=== PATIENT | male | born 1955 | race Caucasian/White ===

== ENCOUNTER 2016-07-08 18:08 | Emergency (ER) | payer OTHER ==
[~2016-07-08] VITALS: Ht 190.5 cm; Wt 117.9 kg
[~2016-07-08 18:08] MED LIST: ATOR40TA59 PO; HYDR-2678 PO; LISI1TAB7 PO; METO25TA4 PO; ONDA8TAB9 PO; POTA10TA5 PO
[2016-07-08] MEDS ORDERED: IV NORMAL SALINE 1000ML BAG 1,000 ML IV SCH (19:45)
[2016-07-08 19:51] LABS: BASO % 0 % (0-3); EOS % 2 % (0-3); HEMATOCRIT 44.1 % (39.0-53.0); HEMOGLOBIN 15.3 g/dL (13.0-17.5); LYMPH # 0.9 x10^3/uL (1.0-4.8); LYMPH % 10 % (24-48); MEAN CORPUSCULAR HEMOGLOBIN 30 pg (25-35); MEAN CORPUSCULAR HGB CONC 35 g/dL (31-37); MEAN CORPUSCULAR VOLUME 86 fL (79-100); MONO % 11 % (0-9); NEUT % 77 % (31-73); PLATELET COUNT 105 x10^3/uL (140-400); RED BLOOD COUNT 5.14 x10^6/uL (4.30-5.70); RED CELL DISTRIBUTION WIDTH 15.2 % (11.5-14.5); WHITE BLOOD COUNT 9.3 x10^3/uL (4.0-11.0)
[2016-07-08 20:01] LABS: CALCIUM 9.1 mg/dL (8.5-10.1); GFR 75.7; POTASSIUM 3.6 mmol/L (3.5-5.1)
[2016-07-08 20:07] LABS: ALBUMIN/GLOBULIN RATIO 1.3 (1.0-1.7); TOTAL PROTEIN 7.2 g/dL (6.4-8.2)
[2016-07-08] MEDS ORDERED: CONTRAST GIVEN MC PRN (20:30)
[2016-07-08] MEDS ORDERED: IOHEXOL 300 MG/ML 75 ML VIAL IV ONE (20:30)
[2016-07-08 20:51] LABS: BILIRUBIN,URINE NEGATIVE (NEG); GLUCOSE,URINE NEGATIVE (NEG); NITRITE,URINE NEGATIVE (NEG); PROTEIN,URINE NEGATIVE (NEG-TRACE); UROBILINOGEN,URINE 0.2 mg/dL (0.2 mg/dL)
[2016-07-08 20:58] LABS: BACTERIA,URINE 0 /HPF (0-FEW); RBC,URINE 0 /HPF (0-2); SQUAMOUS EPITHELIAL CELL,UR OCC /LPF; WBC,URINE 0 /HPF (0-4)
--- NOTE | 2016-07-08 21:06 | RAD ---
PROCEDURE CT abdomen pelvis with intravenous contrast only HISTORY Abdominal pain, umbilical hernia TECHNIQUE After administration of intravenous contrast, CT imaging was performed of the abdomen pelvis, multiplanar reconstruction images submitted. No oral contrast was given as per request. Exposure: One or more of the following individualized dose reduction techniques were utilized for this exam: 1. Automated exposure control. 2. Adjustment of the mA and/or kV according to patient size. 3. Use of iterative reconstruction technique. Contrast: 75 cc Omnipaque 300 COMPARISON February 13, 2016 FINDINGS There is no significant abnormality of the limited visualized lung bases. No new focal abnormality is identified of the liver, spleen, pancreas. There is again 1.8 centimeter gallstone. Gallbladder is otherwise contracted. There is no adrenal nodularity. Both kidneys enhance, no hydronephrosis. There is again a shallow fat containing ventral hernia to the left of midline up to 2.8 centimeters transverse, no internal bowel. Accurate evaluation of bowel is limited without oral contrast. Bowel is not considered significantly dilated. There is some fluid within segments of the small bowel, some questionable mild wall thickening more distally. There are some air-fluid levels in the colon which is not dilated. Appendix is not clearly identified if still present. No free air or free fluid is identified. There are some scattered colonic diverticula without obvious evidence of diverticulitis. IMPRESSION 1. There is again gallstone. 2. There are some air-fluid levels in the colon which could be seen with diarrheal [place], some questionable enhancement of the more distal small bowel salazar which could be associated with enteritis. There is colonic diverticulosis without convincing evidence of diverticulitis. Electronically signed by: Kervin Nieves MD (July 08, 2016 21:04:47)
--- NOTE | 2016-07-08 21:16 | PHYS DOC ---
Past Medical History Past Medical History: Cancer, High Cholesterol, Hypertension, Other Additional Past Medical Histor: COLON CA Past Surgical History: Tonsillectomy, Other Additional Past Surgical Histo: COLON SX, HERNIA SX Alcohol Use: Rarely Drug Use: None Adult General Chief Complaint Chief Complaint: ABDOMINAL PAIN HPI HPI Patient is a 60 year old MALE who presents with ABDOMINAL PAIN Pt states has had abdominal pain all day today. "I have pain over my hernia area" Nausea all day and 2 episodes of diarrhea today. No melena , no hematochezia Pt states pain in "known"hernia area worse with sitting and upright and better when lying down. No F/C Pt states "known" ventral hernia at superior portion of abdominal incision from previous colon Cancer surgery, around belly button area. "My PCP told me large hernia" "I was supposed to make an appointment with Dr. Stark the surgeon for hernia eval but haven't made appointment yet" "My PCP gave me instructions on which symptoms to go to ER for if problems with Hernia. I feel worse today so came to ER Pain earlier started at 430pm 5/10 now better lying supine and is 1/10. Dull ache. Review of Systems Review of Systems Constitutional: Denies fever or chills [] Eyes: Denies change in visual acuity, redness, or eye pain [] HENT: Denies nasal congestion or sore throat [] Respiratory: Denies cough or shortness of breath [] Cardiovascular: No additional information not addressed in HPI [] GI: Abdominal pain, nausea, no vomiting, but some diarrhea, no melena, no hematochezia : Denies dysuria or hematuria [] Musculoskeletal: Denies back pain or joint pain [] Integument: Denies rash or skin lesions [] Neurologic: Denies headache, focal weakness or sensory changes [] Current Medications Current Medications Current Medications Medications (Trade) Dose Ordered Sig/Duke Start Time Stop Time Status Last Admin Dose Admin Info (Do NOT chart on this entry -- for MONITORING) 1 each PRN DAILY PRN 07/08/16 20:30 07/08/16 21:48 DC Iohexol (Omnipaque 300 Mg/ml) 75 ml 1X ONCE 07/08/16 20:30 07/08/16 20:31 DC 07/08/16 20:28 75 ML Sodium Chloride 1,000 ml @ 1,000 mls/hr Q1H 5/22/17 19:45 07/08/16 20:44 DC 07/08/16 19:48 1,000 MLS/HR Allergies Allergies Allergies Coded Allergies Type Severity Reaction Last Updated Verified No Known Drug Allergies 06/19/15 No Physical Exam Physical Exam Constitutional: Well developed, well nourished, no acute distress, non-toxic appearance. [] HENT: Normocephalic, atraumatic, bilateral external ears normal, oropharynx moist, no oral exudates, nose normal. [] Eyes: PERRLA, EOMI, conjunctiva normal, no discharge. [] Neck: Normal range of motion, no tenderness, supple, no stridor. [] Cardiovascular:Heart rate regular rhythm, no murmur [] Lungs & Thorax: Bilateral breath sounds clear to auscultation [] Abdomen: Bowel sounds normal, soft, no tenderness, no masses, no pulsatile masses. [] Skin: Warm, dry, no erythema, no rash. [] Back: No tenderness, no CVA tenderness. [] Extremities: No tenderness, no cyanosis, no clubbing, ROM intact, no edema. [] Neurologic: Alert and oriented X 3, normal motor function, normal sensory function, no focal deficits noted. [] Psychologic: Affect normal, judgement normal, mood normal. [] Current Patient Data Vital Signs Vital Signs Date Time Temp Pulse Resp B/P (MAP) Pulse Ox O2 Delivery O2 Flow Rate FiO2 07/08/16 21:42 60 20 129/69 (89) 97 Room Air 07/08/16 19:00 97.8 97.8 Lab Values Laboratory Tests Test 07/08/16 19:40 07/08/16 20:40 White Blood Count 9.3 x10^3/uL (4.0-11.0) Red Blood Count 5.14 x10^6/uL (4.30-5.70) Hemoglobin 15.3 g/dL (13.0-17.5) Hematocrit 44.1 % (39.0-53.0) Mean Corpuscular Volume 86 fL (79-100) Mean Corpuscular Hemoglobin 30 pg (25-35) Mean Corpuscular Hemoglobin Concent 35 g/dL (31-37) Red Cell Distribution Width 15.2 % (11.5-14.5) H Platelet Count 105 x10^3/uL (140-400) L Neutrophils (%) (Auto) 77 % (31-73) H Lymphocytes (%) (Auto) 10 % (24-48) L Monocytes (%) (Auto) 11 % (0-9) H Eosinophils (%) (Auto) 2 % (0-3) Basophils (%) (Auto) 0 % (0-3) Neutrophils # (Auto) 7.1 x10^3uL (1.8-7.7) Lymphocytes # (Auto) 0.9 x10^3/uL (1.0-4.8) L Monocytes # (Auto) 1.0 x10^3/uL (0.0-1.1) Eosinophils # (Auto) 0.2 x10^3/uL (0.0-0.7) Basophils # (Auto) 0.0 x10^3/uL (0.0-0.2) Sodium Level 139 mmol/L (136-145) Potassium Level 3.6 mmol/L (3.5-5.1) Chloride Level 100 mmol/L (98-107) Carbon Dioxide Level 30 mmol/L (21-32) Anion Gap 9 (6-14) Blood Urea Nitrogen 15 mg/dL (8-26) Creatinine 1.0 mg/dL (0.7-1.3) Estimated GFR (Cockcroft-Gault) 75.7 BUN/Creatinine Ratio 15 (6-20) Glucose Level 116 mg/dL (70-99) H Calcium Level 9.1 mg/dL (8.5-10.1) Total Bilirubin 2.0 mg/dL (0.2-1.0) H Aspartate Amino Transferase (AST) 14 U/L (15-37) L Alanine Aminotransferase (ALT) 38 U/L (16-63) Alkaline Phosphatase 119 U/L (46-116) H Total Protein 7.2 g/dL (6.4-8.2) Albumin 4.0 g/dL (3.4-5.0) Albumin/Globulin Ratio 1.3 (1.0-1.7) Urine Color Yellow Urine Clarity Clear Urine pH 6.0 Urine Specific [place] 1.010 Urine Protein Negative mg/dL (NEG-TRACE) Urine Glucose (UA) Negative mg/dL (NEG) Urine Ketones (Stick) Negative mg/dL (NEG) Urine Blood Negative (NEG) Urine Nitrite Negative (NEG) Urine Bilirubin Negative (NEG) Urine Urobilinogen Dipstick 0.2 mg/dL (0.2 mg/dL) Urine Leukocyte Esterase Negative (NEG) Urine RBC 0 /HPF (0-2) Urine WBC 0 /HPF (0-4) Urine Squamous Epithelial Cells Occ /LPF Urine Bacteria 0 /HPF (0-FEW) Laboratory Tests 07/08/16 19:40 Laboratory Tests 07/08/16 19:40 EKG EKG [] Radiology/Procedures Radiology/Procedures [] PATIENT: DIEGO FERNANDEZ ACCOUNT: [id number] : 1955 LOCATION: ER AGE: 60 SEX: M EXAM STATUS: REG ER ORD. PHYSICIAN: ELIZABETH MACARIO MD REASON: ABDOMINAL PAIN, HX HERNIA PROCEDURE: CT ABD PELV W/ IV CONTRST ONLY PROCEDURE CT abdomen pelvis with intravenous contrast only HISTORY Abdominal pain, umbilical hernia TECHNIQUE After administration of intravenous contrast, CT imaging was performed of the abdomen pelvis, multiplanar reconstruction images submitted. No oral contrast was given as per request. Exposure: One or more of the following individualized dose reduction techniques were utilized for this exam: 1. Automated exposure control. 2. Adjustment of the mA and/or kV according to patient size. 3. Use of iterative reconstruction technique. Contrast: 75 cc Omnipaque 300 COMPARISON February 13, 2016 FINDINGS There is no significant abnormality of the limited visualized lung bases. No new focal abnormality is identified of the liver, spleen, pancreas. There is again 1.8 centimeter gallstone. Gallbladder is otherwise contracted. There is no adrenal nodularity. Both kidneys enhance, no hydronephrosis. There is again a shallow fat containing ventral hernia to the left of midline up to 2.8 centimeters transverse, no internal bowel. Accurate evaluation of bowel is limited without oral contrast. Bowel is not considered significantly dilated. There is some fluid within segments of the small bowel, some questionable mild wall thickening more distally. There are some air-fluid levels in the colon which is not dilated. Appendix is not clearly identified if still present. No free air or free fluid is identified. There are some scattered colonic diverticula without obvious evidence of diverticulitis. IMPRESSION 1. There is again gallstone. 2. There are some air-fluid levels in the colon which could be seen with diarrheal [place], some questionable enhancement of the more distal small bowel [place] which could be associated with enteritis. There is colonic diverticulosis without convincing evidence of diverticulitis. Electronically signed by: Kervin Ling MD (July 08, 2016 21:04:47) DICTATED and SIGNED BY: PAIGE LING MD DATE: 07/08/162103 CC: ELIZABETH MACARIO MD; ROCÍO EGAN MD ~ Impressions: 1. Abdominal pain 2. Ventral hernia with fat containing area, no obstruction 3. Diarrhea 4. Incidental finding of gallstone Course & Med Decision Making Course & Med Decision Making Pertinent Labs and Imaging studies reviewed. (See chart for details) Called Dr. Stark and discussed pt exam and CT /lab findings. Pt is comfortable lying reclined no pain Discussed with pt that Dr. Stark wants pt to call office and get follow up tomorrow for recheck no work for pt for 2 days pt declined pain meds and will follow up [] Dragon Disclaimer Dragon Disclaimer This electronic medical record was generated, in whole or in part, using a voice recognition dictation system. Departure Departure Impression: Primary Impression: Ventral hernia without obstruction or gangrene Additional Impressions: Abdominal pain Diarrhea Disposition: 01 HOME, SELF-CARE Condition: IMPROVED Referrals: ROCÍO EGAN MD (PCP) ZAKI STARK MD Patient Instructions: Diarrhea, Hernia, [id number] Additional Instructions: ENCOURAGE LIQUIDS WHILE DIARRHEA IS CONTINUING TO AVOID DEHYDRATION CALL DR. PRATER OFFICE IN AM AND FOLLOW UP WITH HIM TOMORROW FOR RECHECK RETURN IF WORSE OR CHANGE IN SYMPTOMS Problem Qualifiers ELIZABETH MACARIO MD July 08, 2016 21:16
[2016-07-08 21:42] VITALS: BP 129/69
== END 2016-07-08 21:48 | disposition home or self-care (01) ==
LOC: ER 18:08
DX: K43.9 Ventral hernia without obstruction or gangrene (principal); R19.7 Diarrhea, unspecified; E78.00 Pure hypercholesterolemia, unspecified; I10 Essential (primary) hypertension; Z98.890 Other specified postprocedural states
CPT/HCPCS: 36415; 74177; 80053; 81001; 85027; 96360; 99285; J7030; Q9967

== ENCOUNTER 2016-08-05 06:07 | Observation (INO) | payer OTHER ==
[2016-08-05] VITALS (10 sets, daily range): BP systolic 93–128; BP diastolic 61–77
[~2016-08-05] VITALS: Ht 190.5 cm; Wt 115.7 kg
[~2016-08-05 06:07] MED LIST changes: +IV RINGERS,LACTATED 1000ML 1,000 ML IV SCH; +LIDOCAINE 1% 1 ML SYRINGE. ID PRN
[2016-08-05] MEDS ORDERED: PROPOFOL 20 ML IV ONE (07:05)
[2016-08-05] MEDS ORDERED: ePHEDrine PF IN SALINE 50 MG/5 ML DISP.SYRIN IV ONE (07:05)
[2016-08-05] MEDS ORDERED: LIDOCAINE 2% PF Vial for OR 5 ML VIAL. ONE (07:05)
[2016-08-05] MEDS ORDERED: ONDANSETRON PF 4 MG/2 ML VIAL. ONE (07:05)
[2016-08-05] MEDS ORDERED: DEXAMETHASONE SOD PHOS 20 MG/5 ML VIAL. ONE (07:05)
[2016-08-05] MEDS ORDERED: fentaNYL PF VIAL 250 MCG/5 ML VIAL ONE (07:07)
[2016-08-05] MEDS ORDERED: ROCURONIUM 50 MG/5 ML VIAL. ONE (07:07)
[2016-08-05] MEDS ORDERED: NEOSTIGMINE 10 MG/10 ML VIAL. ONE (07:47)
[2016-08-05] MEDS ORDERED: GLYCOPYRROLATE 1 MG/5 ML VIAL. ONE (07:48)
[2016-08-05] MEDS ORDERED: NEOSTIGMINE METHYLSULFATE 5 MG/5 ML SYRINGE. ONE (07:50)
[2016-08-05] MEDS ORDERED: SEVOFLURANE 61 TO 120 MINUTES. IH ONE (08:56)
[2016-08-05] MEDS ORDERED: IV RINGERS,LACTATED 1000ML 1,000 ML IV SCH ×2 (09:39→09:45)
--- NOTE | 2016-08-05 09:42 | PDOC4 ---
Operative Note Operative Note Operative Note: Preoperative Diagnosis: Ventral hernia Postoperative Diagnosis: Same Procedure: Ventral hernia repair with mesh Surgeon: Daniel Estrada.: Arnie AJ Anesthesia: Gen. EBL: 10 mL Specimen: None Drains: None Complications: None Indication: The patient is a 60-year-old male who had prior colon surgery. He has developed a focal ventral hernia near the upper part of his incision. He is interested in surgical repair of the hernia. I discussed with him details of surgery including the use of mesh. The risks of surgery were also noted which include bleeding, infection, recurrence, pain, potential need for additional surgery or procedure. He understands and would like to proceed. Description: The patient was taken to the operating room and placed supine on the operating table. Gen. anesthesia was performed. The abdomen was prepped with ChloraPrep and draped with sterile towels, sheets, and an Ioban. An incision was made at the site of the prior scar in the upper part of his previous lower vertical midline incision. Cautery dissection was carried down through the subcutaneous tissues. There was some scar tissue present. We were able to clearly identify the hernia sac. The fascial edges were delineated. Inspection of the surrounding fascia showed no other evidence of weakness or hernia defects. The hernia sac was opened and there was no visceral adherence to the sac. With a finger I was able to palpate good clearance circumferentially around the intraperitoneal portion of the abdominal wall. The hernia sac was then closed with 2-0 Vicryl. A preperitoneal plane was then developed circumferentially around the hernia defect. I was able to obtain several centimeters of length in all directions around the hernia defect. The hernia defect measured approximately 3 x 4 cm in size. A large Ventralex ST mesh was then placed in the newly formed preperitoneal space. The mesh rested well and provided several centimeters of overlap in all directions. The mesh was sutured into position at the 12, 3, 6, 9:00 positions using 0 Prolene placed in a horizontal mattress fashion. The attenuated fascial edges were closed over the mesh with interrupted 0 Prolene. The subcutaneous tissue was approximated with 3-0 Vicryl. The skin was then closed with a 4-0 Monocryl suture. Steri-Strips and a sterile dressing were then applied. The patient tolerated the procedure well and was sent to the recovery room in stable condition. At the end of the case all counts were correct. CHIRAG SEBASTIAN MD Aug 05, 2016 09:42
[2016-08-05] MEDS ORDERED: oxyCODONE/APAP 5/325 1 TAB TABLET PO PRN ×2 (09:45)
[2016-08-05] MEDS ORDERED: HYDROmorphone 2 MG/ML VIAL IV PRN ×3 (09:45)
[2016-08-05] MEDS ORDERED: LIDOCAINE 1% 1 ML SYRINGE. ID PRN ×2 (09:45)
[2016-08-05] MEDS ORDERED: MORPHINE SULFATE 4 MG/ML DISP.SYRIN. IV PRN (09:45)
[2016-08-05] MEDS ORDERED: MORPHINE SULFATE 2 MG/ML DISP.SYRIN. IV PRN (09:45)
[2016-08-05] MEDS ORDERED: fentaNYL PF VIAL 100 MCG/2 ML VIAL IV PRN ×5 (09:45)
[2016-08-05] MEDS ORDERED: diphenhydrAMINE 50 MG/ML VIAL IV PRN (09:45)
[2016-08-05] MEDS ORDERED: MIDAZOLAM HCL/PF 2 MG/2 ML VIAL. IV PRN ×2 (09:45)
[2016-08-05] MEDS ORDERED: PROCHLORPERAZINE 10 MG/2 ML VIAL. IV PRN ×2 (09:45)
[2016-08-05] MEDS ORDERED: KETOROLAC 15 MG/ML VIAL. IV PRN (09:45)
[2016-08-05] MEDS ORDERED: ONDANSETRON PF 4 MG/2 ML VIAL. IV PRN ×2 (09:45)
[2016-08-05] MEDS ORDERED: 0.9 % SODIUM CHLORIDE 10 ML DISP.SYRIN. IV PRN (09:45)
[2016-08-05] MEDS ORDERED: MEPERIDINE PF 25 MG/ML VIAL. IV PRN (09:45)
[2016-08-05] MEDS ORDERED: IV 1/2 NORMAL SALINE 1,000 ML IV SCH (12:00)
--- NOTE | 2016-08-05 15:02 | DISCH ---
DISCHARGE INSTRUCTIONS Condition on Discharge Condition on Discharge: Stable Activity After Discharge Activity Instructions for Disc: Other, see below (no lifting over 20 lbs) Diet after Discharge Diet after Discharge: Regular Wound Incision Care Wound/Incision Care: Other, see below (keep dressing on 72 hours, may then remove and shower) Follow-Up Follow up with: Dr Sebastian in 2 weeks, call for appt [phone] CHIRAG SEBASTIAN MD Aug 05, 2016 15:02
[2016-08-05] MEDS ORDERED: ATORVASTATIN CALCIUM 40 MG TABLET. PO SCH (21:00)
[2016-08-06] MEDS ORDERED: POTASSIUM CHLORIDE 20 MEQ TABLET.ER. PO SCH (08:00)
[2016-08-06] MEDS ORDERED: METOPROLOL TART IMMED RELEASE 25 MG TABLET. PO SCH (09:00)
[2016-08-06] MEDS ORDERED: NON FORMULARY ITEM (Lisinopril/Hydrochlorothiazide (Lisinopril-Hctz 20-25 Mg Tab) 1 TAB) PO SCH (09:00)
[2016-08-06] MEDS ORDERED: hydroCHLOROthiazide 25 MG TABLET PO SCH (09:00)
[2016-08-06] MEDS ORDERED: LISINOPRIL 20 MG TABLET PO SCH (09:00)
== END 2016-08-05 18:51 | disposition home or self-care (01) ==
LOC: SURG 06:07 → 4 SOUTHEST 09:42
PROVIDERS: ADMIT Surgery; ATTEND Surgery
DX: K43.9 Ventral hernia without obstruction or gangrene (principal)
CPT/HCPCS: 49560; 49568; G0378; G0379; J0690; J1100; J2405; J2704; J2710; J3010; J3490; J7120

== ENCOUNTER → 2017-02-12 | Outpatient (CLI) | payer OTHER ==
[2016-08-05 18:14] VITALS: BP 125/71
[~2017-02-12] MED LIST changes: +IOHEXOL 240 MG/ML 50ML VIAL. PO ONE; +IOHEXOL 300 MG/ML 100ML VIAL. IV ONE; -IV RINGERS,LACTATED 1000ML 1,000 ML IV SCH; -LIDOCAINE 1% 1 ML SYRINGE. ID PRN
--- NOTE | 2017-02-12 15:28 | RAD ---
CT of the chest, abdomen and pelvis with contrast, 02/12/2017: History: Colon cancer Multidetector CT imaging was performed following oral and IV administration of contrast. Comparison is made to studies from 02/13/2016 and 07/08/2016. No mediastinal or hilar adenopathy is seen. There are mild scattered coronary artery calcifications. There appears to be minimal streaky scarring or atelectasis in the inferomedial aspect of the right middle lobe. No pulmonary mass or significant consolidation is seen. There is no evidence of pleural fluid. No hepatic abnormality is detected. A moderate size gallstone is present in the gallbladder. No pericholecystic edema is evident. The pancreas is unremarkable. The spleen is of normal size. Contour irregularities suggest prior splenic trauma. No renal or adrenal abnormality is detected. The abdominal aorta is unremarkable. No abdominal or pelvic adenopathy is seen. A few colonic diverticula are noted, particularly in the descending and sigmoid colon. No paracolonic inflammatory process is seen. The bowel loops are not dilated. No free fluid is evident in the abdomen or pelvis. IMPRESSION: 1. No CT evidence of metastatic disease in the chest, abdomen or pelvis. 2. Cholelithiasis. 3. Colonic diverticulosis. PQRS Compliance Statement: One or more of the following individualized dose reduction techniques were utilized for this examination: 1. Automated exposure control 2. Adjustment of the mA and/or kV according to patient size 3. Use of iterative reconstruction technique
== END | disposition home or self-care (01) ==
LOC: CT 10:53
PROVIDERS: ATTEND Internal Medicine Hematology & Oncology
DX: C18.7 Malignant neoplasm of sigmoid colon (principal); K80.20 Calculus of gallbladder without cholecystitis without obstruction; K57.30 Diverticulosis of large intestine without perforation or abscess without bleeding
CPT/HCPCS: 71260; 74177; Q9966; Q9967

== ENCOUNTER → 2018-02-25 | Outpatient (CLI) | payer OTHER ==
[2016-08-05 18:14] VITALS: BP 125/71
[~2018-02-25] MED LIST changes: +POTA10TA12 PO; -POTA10TA5 PO
--- NOTE | 2018-02-25 10:28 | RAD ---
CT CHEST ABD PELVIS W/CONTRAST Indication: Malignant neoplasm sigmoid colon Technique: Postcontrast CT imaging was performed of the chest, abdomen, pelvis, multiplanar reconstruction images submitted. Oral contrast was given. One or more of the following individualized dose reduction techniques were utilized for this examination: 1. Automated exposure control 2. Adjustment of the mA and/or kV according to patient size 3. Use of iterative reconstruction technique. Comparison: February 12, 2017; February 13, 2016 Chest: Findings: A 0.4 cm right middle lobe nodule axial image 38 is stable. Mild likely fibrotic change of the left upper lobe is similar, more linear appearance on coronal images. Small 0.5 cm focus of nodularity along the left major fissure axial image 42 is stable. Major airways are patent. No new significant lymphadenopathy is identified of the chest. There is again air-fluid level in the slightly dilated esophagus, possible mild esophageal wall thickening unchanged. There is no pleural or pericardial effusion, pneumothorax, infiltrate. There is mild coronary calcification. There is multilevel thoracic spondylosis. IMPRESSION: 1. There is no new abnormality of the chest including new pulmonary nodularity or lymphadenopathy, a couple of small pulmonary nodules stable dating back to 2016 exam. 2. There is mild coronary calcification. 3. There is again air-fluid level in slightly dilated esophagus with possible mild esophageal wall thickening which can be associated with esophagitis although nonspecific. Abdomen pelvis: Findings: There is again 2 cm gallstone. No new focal abnormality is identified liver, pancreas, spleen. There is no adrenal nodularity. Both kidneys enhance, no hydronephrosis. Bowel is not considered significantly dilated. Mild amorphous density of the mesenteric and omental fat greatest centrally and on the left is similar. There is no free air, free fluid, or bowel dilatation. There is diverticulosis greatest of the descending and sigmoid colon without new adjacent inflammatory-type change. There is mild distention of the urinary bladder. New significant lymphadenopathy is identified of the abdomen or pelvis. There is facet degenerative change greater inferiorly of the lumbar spine. There is again partial fusion of the left sacroiliac joint, also some fused osteophytes on the right. IMPRESSION: 1. Findings are unchanged comparing with the previous exam, no new evidence of metastatic disease to the abdomen or pelvis. 2. There is again diverticulosis of the descending and sigmoid colon. 3. There is again cholelithiasis. Electronically signed by: Jarrett Nieves MD (02/25/2018 10:24 AM) [id number]
== END | disposition home or self-care (01) ==
LOC: CT 08:12
PROVIDERS: ATTEND Internal Medicine Hematology & Oncology
DX: C18.7 Malignant neoplasm of sigmoid colon (principal); K57.30 Diverticulosis of large intestine without perforation or abscess without bleeding; K80.20 Calculus of gallbladder without cholecystitis without obstruction; K22.8 Other specified diseases of esophagus; M47.894 Other spondylosis, thoracic region; I25.10 Atherosclerotic heart disease of native coronary artery without angina pectoris; R91.1 Solitary pulmonary nodule
CPT/HCPCS: 71260; 74177; Q9966; Q9967

== ENCOUNTER → 2019-03-11 | Outpatient (CLI) | payer OTHER ==
[2016-08-05 18:14] VITALS: BP 125/71
[~2019-03-11] MED LIST changes: +LISI1TAB20 PO; -LISI1TAB7 PO
--- NOTE | 2019-03-11 10:36 | RAD ---
Examination: CT CHEST ABD PELVIS W/CONTRAST History: Colon cancer Comparison/Correlation: 03/07/2018 CT chest abdomen and pelvis with contrast Findings: Axial images of the chest, abdomen, pelvis were obtained following IV contrast. Sagittal and coronal reformatted images were provided. Saber-sheath trachea is present. Tracheal bronchial tree dilatation noted. Left anterior descending coronary vessel calcification is present. No enlarged thoracic lymph nodes. Thoracic aorta is unremarkable. No pulmonary nodule or suspicious infiltrate. Small nodule involving the right middle lobe which appears to represent a calcified granuloma is stable. There is a 2.1 cm diameter calculus within the gallbladder. Liver, spleen, pancreas, adrenal glands, and kidneys are unremarkable. Diverticulosis is present involving the colon. No extraluminal gas or obstruction. No inflammatory change about the cecum. Moderate quantity of stool in the distal rectum noted. Urinary bladder is unremarkable. Subtle high density of mesenteric fat is present at the left upper quadrant and lower abdomen and is similar to prior exam. Bony structures are unremarkable. Impression: No mass lesions, enlarged lymph nodes, or other suspicious findings in the interval.. No infiltrate. Cholelithiasis. PQRS Compliance Statement: One or more of the following individualized dose reduction techniques were utilized for this examination: 1. Automated exposure control 2. Adjustment of the mA and/or kV according to patient size 3. Use of iterative reconstruction technique Electronically signed by: Nasim Awad MD (03/11/2019 10:33 AM) [facility]
== END | disposition home or self-care (01) ==
LOC: CT 07:59
PROVIDERS: ATTEND Internal Medicine Hematology & Oncology
DX: C18.7 Malignant neoplasm of sigmoid colon (principal); K57.30 Diverticulosis of large intestine without perforation or abscess without bleeding; K80.20 Calculus of gallbladder without cholecystitis without obstruction; I25.10 Atherosclerotic heart disease of native coronary artery without angina pectoris
CPT/HCPCS: 71260; 74177; Q9966; Q9967

== ENCOUNTER → 2020-02-16 | Outpatient (CLI) | payer OTHER ==
[2016-08-05 18:14] VITALS: BP 125/71
[~2020-02-16] MED LIST changes: -IOHEXOL 240 MG/ML 50ML VIAL. PO ONE; -IOHEXOL 300 MG/ML 100ML VIAL. IV ONE
[2020-02-16 08:56] LABS: ALBUMIN 3.9 g/dL (3.4-5.0); ALBUMIN/GLOBULIN RATIO 1.2 (1.0-1.7); GFR 74.8; POTASSIUM 3.6 mmol/L (3.5-5.1); TOTAL BILIRUBIN 1.1 mg/dL (0.2-1.0); TOTAL PROTEIN 7.1 g/dL (6.4-8.2)
[2020-02-16 08:57] LABS: CHOLESTEROL/HDL RATIO 2.5
== END ==
LOC: LAB 07:54
PROVIDERS: ATTEND Nurse Practitioner
DX: E78.5 Hyperlipidemia, unspecified (principal)
CPT/HCPCS: 36415; 80053; 80061; 83721

== ENCOUNTER → 2020-02-16 | Outpatient (CLI) | payer OTHER ==
[2016-08-05 18:14] VITALS: BP 125/71
[~2020-02-16] MED LIST changes: +CONTRAST GIVEN. MC PRN; +IOHEXOL 240 MG/ML 50ML VIAL. PO ONE; +IOHEXOL 300 MG/ML 100ML VIAL. IV ONE
[2020-02-16 08:44] LABS: CREATININE 0.8 mg/dL (0.7-1.3); GFR 96.7
--- NOTE | 2020-02-16 10:05 | RAD ---
CT of the chest, abdomen, and pelvis with contrast 02/16/2020 INDICATION: History of colorectal carcinoma COMPARISON STUDY: CT of the chest abdomen and pelvis March 11, 2019. CT of the chest May 12, 2015 . TECHNIQUE: Multidetector CT imaging of the chest, abdomen, and pelvis performed on the administration of contrast. FINDINGS: Heart size remains normal. No pericardial effusion is identified. No pathologically enlarge d mediastinal adenopathy is identified. There is no pneumothorax, pleural effusion, or focal infiltra te. No pulmonary nodules or masses of concern are identified. 4 to 5 mm nodule in the right middle lo be is unchanged since April 2015. No other significant pulmonary nodules are identified. The adrenal glands, spleen, kidneys and pancreas are unremarkable. Cholelithiasis again noted. The li rd is unremarkable in appearance. There is no evidence of bowel obstruction. Distal colonic divertic ulosis is similar. Mesenteric fat stranding is noted, similar to comparison studies, nonspecific. No acute osseous changes are identified. IMPRESSION: 1. No evidence of acute cardiopulmonary or intra-abdominal abnormality 2. No CT evidence of malignancy is identified CT DOSING PQRS STATEMENT: One or more of the following individualized dose reduction techniques were utilized for this examinat ion: 1. Automated exposure control 2. Adjustment of the mA and/or kV according to patient size 3. Use of iterative reconstruction technique Electronically signed by: Chema Ferguson MD (02/16/2020 10:03 AM) [id number]
== END ==
LOC: CT 07:50
PROVIDERS: ATTEND Internal Medicine Hematology & Oncology
DX: C18.7 Malignant neoplasm of sigmoid colon (principal); R91.1 Solitary pulmonary nodule; K80.20 Calculus of gallbladder without cholecystitis without obstruction; K57.30 Diverticulosis of large intestine without perforation or abscess without bleeding; E78.5 Hyperlipidemia, unspecified
CPT/HCPCS: 36415; 71260; 74177; 82565; 84520; Q9966; Q9967

== ENCOUNTER 2021-01-17 07:02 | Inpatient (IN) | payer OTHER, MEDICARE ==
[~2021-01-17] VITALS: Ht 190.5 cm; Wt 113.4 kg
[~2021-01-17 07:02] MED LIST changes: -CONTRAST GIVEN. MC PRN; -IOHEXOL 240 MG/ML 50ML VIAL. PO ONE; -IOHEXOL 300 MG/ML 100ML VIAL. IV ONE; -LISI1TAB20 PO; +LISI1TAB39 PO
[2021-01-17] MEDS ORDERED: IV NORMAL SALINE 1000ML BAG 1,000 ML IV ONE (08:00)
[2021-01-17 08:27] LABS: BASO % 0 % (0-3); EOS # 0.1 x10^3/uL (0.0-0.7); EOS % 1 % (0-3); HEMOGLOBIN 15.4 g/dL (13.0-17.5); LYMPH # 0.8 x10^3/uL (1.0-4.8); LYMPH % 7 % (24-48); MEAN CORPUSCULAR HEMOGLOBIN 29 pg (25-35); MEAN CORPUSCULAR HGB CONC 36 g/dL (31-37); MEAN CORPUSCULAR VOLUME 82 fL (79-100); MONO # 1.9 x10^3/uL (0.0-1.1); MONO % 19 % (0-9); NEUT # 7.3 x10^3/uL (1.8-7.7); NEUT % 73 % (31-73); PLATELET COUNT 160 x10^3/uL (140-400); RED BLOOD COUNT 5.26 x10^6/uL (4.30-5.70); RED CELL DISTRIBUTION WIDTH 15.5 % (11.5-14.5); WHITE BLOOD COUNT 10.1 x10^3/uL (4.0-11.0)
[2021-01-17 08:30] LABS: INFLUENZA A PATIENT NEGATIVE (NEGATIVE); INFLUENZA B PATIENT NEGATIVE (NEGATIVE)
[2021-01-17 08:42] LABS: CALCIUM 8.3 mg/dL (8.5-10.1); CREATININE 0.9 mg/dL (0.7-1.3); GFR 84.2; POTASSIUM 3.2 mmol/L (3.5-5.1)
[2021-01-17] MEDS ORDERED: DEXAMETHASONE SOD PHOS 4 MG/ML VIAL IVP ONE (08:45)
--- NOTE | 2021-01-17 08:48 | PHYS DOC ---
Past Medical History Past Medical History: Cancer, High Cholesterol, Hypertension, Other Additional Past Medical Histor: COLON CA Past Surgical History: Tonsillectomy, Other Additional Past Surgical Histo: COLON SX, HERNIA SX Smoking Status: Never Smoker Alcohol Use: None Drug Use: None Social History Narrative: Lives with who currently has similar symptoms General Adult EDM: Chief Complaint: SHORTNESS OF BREATH HPI: HPI: Patient is a 65-year-old male who presents to the emergency department with reported episode of dizziness this morning at 0730 hrs. patient reported that he was walking to his vehicle when he had a sudden onset of "very bad" dizziness that was associated with a feeling of almost passing out. Patient denies actually losing consciousness. Denies head trauma. Endorses a 1 week history of cold symptoms at home including productive cough, nasal discharge, mild malaise. His at home has similar symptoms. He has had 2 doses of the Pfizer vaccine; he reports that his primary care physician advised to not get the third dose booster due to a "significant" reaction he had with the second dose that caused him to be hospitalized briefly. He reports that he has not gotten his flu vaccine this year. He reports mild nausea and diarrhea however denies chest pain, arm pain, jaw pain, shortness of breath, blood in stool. He also reports a recent 2-day history of muffled hearing in the right ear. Review of Systems: Review of Systems: Constitutional: Denies fever; reports "really bad" chills and rigors Eyes: Denies redness or eye pain HENT: Denies sore throat; reports congestion, muffled hearing in the right ear Respiratory: Denies shortness of breath; reports productive cough Cardiovascular: Denies chest pain or palpitations, arm pain, jaw pain; reports dizziness and lightheadedness, GI: Denies abdominal pain, vomiting, blood in stool; reports nausea and diarrhea : Denies dysuria or hematuria Musculoskeletal: Denies back pain or joint pain Integument: Denies rash or skin lesions Neurologic: Denies headache, focal weakness or sensory changes Complete systems were reviewed and found to be within normal limits, except as documented in this note. Heart Score: C/O Chest Pain: N/A Family History: Family History: Unremarkable family history Current Medications: Current Medications Medications (Trade) Dose Ordered Sig/Duke Start Time Stop Time Status Last Admin Dose Admin Sodium Chloride 1,000 ml @ 1,000 mls/hr 1X ONCE 01/17/21 08:00 01/17/21 08:59 01/17/21 08:12 1,000 MLS/HR Allergies: Allergies: Allergies Coded Allergies Type Severity Reaction Last Updated Verified No Known Drug Allergies 08/05/16 No Physical Exam: PE: Constitutional: Well developed, well nourished, mild distress, non-toxic appearance HENT: Normocephalic, atraumatic, right tympanic membrane mildly erythematous/not bulgingear canal appears normal, left tympanic membrane non-erythematous/normal cone of light visualized, attempted Marco maneuver appearing to be negative Eyes: PERRL, conjunctiva normal, no discharge, normal extraocular eye motion, horizontal nystagmus on rightward gaze appreciated during H test Neck: Normal range of motion, no tenderness, supple, no JVD, trachea midline Lungs & Thorax: No respiratory distress, normal chest wall excursion bilaterally, lungs clear to auscultation in all joiner bilaterally Abdomen: Soft, no tenderness Skin: Warm, dry, no erythema, no rash Back: No tenderness, no CVA tenderness Extremities: No tenderness, ROM intact, no edema Neurologic: Alert and oriented X 3, normal motor function, normal sensory function other than reported muffled hearing, no focal deficits noted Psychologic: Affect normal, judgment normal Current Patient Data: Labs: Laboratory Tests Test 01/17/21 07:41 01/17/21 08:05 Influenza Type A Antigen Negative (NEGATIVE) Influenza Type B Antigen Negative (NEGATIVE) SARS-CoV-2 Antigen (Rapid) Negative (NEGATIVE) White Blood Count 10.1 x10^3/uL (4.0-11.0) Red Blood Count 5.26 x10^6/uL (4.30-5.70) Hemoglobin 15.4 g/dL (13.0-17.5) Hematocrit 43.0 % (39.0-53.0) Mean Corpuscular Volume 82 fL (79-100) Mean Corpuscular Hemoglobin 29 pg (25-35) Mean Corpuscular Hemoglobin Concent 36 g/dL (31-37) Red Cell Distribution Width 15.5 % (11.5-14.5) H Platelet Count 160 x10^3/uL (140-400) Neutrophils (%) (Auto) 73 % (31-73) Lymphocytes (%) (Auto) 7 % (24-48) L Monocytes (%) (Auto) 19 % (0-9) H Eosinophils (%) (Auto) 1 % (0-3) Basophils (%) (Auto) 0 % (0-3) Neutrophils # (Auto) 7.3 x10^3/uL (1.8-7.7) Lymphocytes # (Auto) 0.8 x10^3/uL (1.0-4.8) L Monocytes # (Auto) 1.9 x10^3/uL (0.0-1.1) H Eosinophils # (Auto) 0.1 x10^3/uL (0.0-0.7) Basophils # (Auto) 0.0 x10^3/uL (0.0-0.2) Platelet Estimate Pending Laboratory Tests 01/17/21 08:05 Vital Signs: Vital Signs Date Time Temp Pulse Resp B/P (MAP) Pulse Ox O2 Delivery O2 Flow Rate FiO2 01/17/21 07:18 97.9 110 24 101/80 (87) 85 Room Air 97.9 EKG: EKG: EKG taken at 0742 hrs. EKG with significant amount of motion artifact. Normal sinus rhythm rate of 99 bpm. WI interval 78 ms, QRS interval 86 ms, QT/QTc 390 ms / 506 ms. Frequent ectopyPVCs appreciated every fifth beat on this EKG. ST segments appear to be at baseline. T waves appreciated to be normal. No acute ischemic changes appreciated on this EKG. Radiology/Procedures: Radiology/Procedures: PROCEDURE: CHEST AP ONLY XR CHEST 1V History: Reason: cough, SOA, hypoxia/LAB IN ROOM 12:15 / Spl. Instructions: / History: Comparison: None. Findings: Mild ill-defined left basilar opacities. No pleural effusion. No pneumothorax. Unchanged heart size. Impression: 1. Mild left basilar ill-defined opacities, may represent atelectasis. Electronically signed by: Hansel Haddad DO (01/17/2021 1:53 PM) [id number] Course & Med Decision Making: Course & Med Decision Making Pertinent Labs and Imaging studies reviewed. (See chart for details) 65-year-old male presents to the emergency department with a report of few day history of cough, runny nose, congestion. Reports that this morning while walking to his vehicle at 0730 hrs. he became very dizzy, with a feeling of near syncope. He denies LOC/head trauma. Patient reports that his at home has had similar symptoms. He has had 2 doses of the Pfizer vaccineunknown when the last dose was, he has not had a flu vaccine this year. Plan for EKG, IV access, cardiac monitoring, blood work, steroids administered. During patient's course at the emergency department there was a prolonged wait for patient's D-dimer to return. Additionally during his stay his O2 saturation levels begin to fall while on room air he was subsequently placed on supplemental oxygen. Patient will be admitted Patient requiring admission for further evaluation and treatment. Discussed with Dr. Samuel (hospitalist) who is in agreement with admission. Discussed findings and plan with patient, who acknowledges understanding and agreement. COVID-19 CRITERIA: The patient was evaluated during the global COVID-19 pandemic, and that diagnosis was suspected/considered upon their initial presentation. Their evaluation, treatment and testing was consistent with current guidelines for patients who present with complaints or symptoms that may be related to COVID-19. Dragon Disclaimer: Dragon Disclaimer: This electronic medical record was generated, in whole or in part, using a voice recognition dictation system. Departure Departure Impression: Primary Impression: Suspected 2019 novel coronavirus infection Additional Impressions: Respiratory failure Qualified Codes: J96.01 - Acute respiratory failure with hypoxia Lactic acidosis Hypokalemia Disposition: ADMITTED INPATIENT Admitting Physician: GARRY (Jimmie) Condition: GUARDED Referrals: ROCÍO EGAN MD (PCP) COVID-19 Assessment: COVID-19 Patient Risks: Age 65 or older: Yes Sign of co-morbidity: No Exp to person + for COVID: No Exp to PUI: No Travel from affected area: No Lower respiratory symptoms: Yes Fever: Yes Other: Yes PPE Use: Full PPE with N95 mask or PAPR: Yes Critical Care Time Critical care time was 30 minutes which includes time at bedside, spent in discussion of patient's care with specialists and/or family members, with interpretation of laboratory and/or radiological studies and is exclusive of procedures. VARUN GUILLERMO DO Jan 17, 2021 08:48
[2021-01-17 08:49] LABS: ALBUMIN 3.3 g/dL (3.4-5.0); ALBUMIN/GLOBULIN RATIO 0.9 (1.0-1.7); MAGNESIUM 2.1 mg/dL (1.8-2.4); TOTAL BILIRUBIN 1.7 mg/dL (0.2-1.0); TOTAL PROTEIN 6.8 g/dL (6.4-8.2)
[2021-01-17 10:21] LABS: % BANDS 2 % (0-9); % EOS 1 % (0-5); % LYMPHS 10 % (24-48); % MONOS 7 % (0-10); % SEGS 80 % (35-66); PLT ESTIMATE ADEQUATE (ADEQUATE)
[2021-01-17] MEDS ORDERED: POTASSIUM CHLORIDE 20 MEQ TABLET.ER. PO ONE ×2 (10:30→17:30)
[2021-01-17 11:04] LABS: PROTHROMBIN TIME PATIENT 15.1 SEC (11.7-14.0)
--- NOTE | 2021-01-17 11:36 | EKG ---
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
[2021-01-17 11:38] LABS: D-DIMER 0.51 ug/mlFEU (0.00-0.50)
--- NOTE | 2021-01-17 13:56 | RAD ---
XR CHEST 1V History: Reason: cough, SOA, hypoxia/LAB IN ROOM 12:15 / Spl. Instructions: / History: Comparison: None. Findings: Mild ill-defined left basilar opacities. No pleural effusion. No pneumothorax. Unchanged heart size. Impression: 1. Mild left basilar ill-defined opacities, may represent atelectasis. Electronically signed by: Hansel Haddad DO (01/17/2021 1:53 PM) [id number]
[2021-01-17] MEDS ORDERED: cefTRIAXone IV Push 1 GM VIAL. IVP ONE (14:00)
[2021-01-17] MEDS ORDERED: AZITHRMYCN 500MG IVPB FOR OMNI 250 ML IV ONE (14:00)
[2021-01-17] MEDS ORDERED: ONDANSETRON PF 4 MG/2 ML VIAL. IVP PRN (16:15)
[2021-01-17] MEDS ORDERED: ACETAMINOPHEN 325 MG TABLET. PO PRN (16:15)
[2021-01-17] MEDS ORDERED: IV NORMAL SALINE 1000ML BAG 1,000 ML IV SCH (16:15)
[2021-01-17] MEDS ORDERED: guaiFENesin/CODEINE 100mg/10mg 5 ML LIQUID PO PRN (17:45)
--- NOTE | 2021-01-17 18:00 | PDOC1 ---
History and Physical Date of Admission Date of Admission DATE: 01/17/21 TIME: 17:51 Source Source: Chart review, Patient History of Present Illness History of Present Illness Mr. Hargrove, is a 65-year-old male, admitted her 6 years ago for colon cancer and has been doing well since and has been cancer free. Admit from the ER for weakness, cough and dizziness. He reports he almost pass ed out when walking he had new marked dizzyness this morning at 0730 hrs, muffled hearing for 2 days. he has felt mildly ill for almost a week, w. productive cough, nasal discharge, mild malaise. His has similar symptoms. has gotten 2 doses of Pfizer Past Medical History Cardiovascular: HTN, Hyperlipidemia GI: Other Renal/: No pertinent hx Endocrine: No pertinent hx Dermatology: No pertinent hx Past Surgical History Past Surgical History: Tonsillectomy, Other Family History Family History: Cancer, Other Social History Smoke: No ALCOHOL: occassional Drugs: None Current Problem List Problem List Problems Medical Problems: (1) Hypokalemia Status: Acute (2) Lactic acidosis Status: Acute (3) Respiratory failure Status: Acute (4) Suspected 2019 novel coronavirus infection Status: Acute Current Medications Current Medications Current Medications Sodium Chloride 1,000 ml @ 1,000 mls/hr 1X ONCE IV Last administered on 01/17/21at 08:12; Start 01/17/21 at 08:00; Stop 01/17/21 at 08:59; Status DC Dexamethasone Sodium Phosphate (Decadron) 4 mg 1X ONCE IVP Last administered on 01/17/21at 09:05; Start 01/17/21 at 08:45; Stop 01/17/21 at 08:46; Status DC Potassium Chloride (Klor-Con) 40 meq 1X ONCE PO Last administered on 01/17/21at 10:40; Start 01/17/21 at 10:30; Stop 01/17/21 at 10:31; Status DC Ceftriaxone Sodium (Rocephin) 1 gm 1X ONCE IVP Last administered on 01/17/21at 15:00; Start 01/17/21 at 14:00; Stop 01/17/21 at 14:01; Status DC Azithromycin 250 ml @ 250 mls/hr 1X ONCE IV Last administered on 01/17/21at 15:00; Start 01/17/21 at 14:00; Stop 01/17/21 at 14:59; Status DC Ondansetron HCl (Zofran) 4 mg PRN Q8HRS PRN IVP NAUSEA/VOMITING; Start 01/17/21 at 16:15; Stop 01/18/21 at 16:14 Sodium Chloride 1,000 ml @ 100 mls/hr Q10H IV Last administered on 01/17/21at 16:46; Start 01/17/21 at 16:15; Stop 01/18/21 at 02:14 Acetaminophen (Tylenol) 650 mg PRN Q4HRS PRN PO FEVER > 100.3'F; Start 01/17/21 at 16:15; Stop 01/18/21 at 16:14 Atorvastatin Calcium (Lipitor) 40 mg QHS PO ; Start 01/17/21 at 21:00 Metoprolol Succinate (Toprol Xl) 25 mg DAILY PO ; Start 01/18/21 at 09:00 Potassium Chloride (Klor-Con) 40 meq DAILY PO ; Start 01/18/21 at 09:00 Lisinopril (Prinivil) 20 mg DAILY PO ; Start 01/18/21 at 09:00 Potassium Chloride (Klor-Con) 40 meq 1X ONCE PO ; Start 01/17/21 at 17:30; Stop 01/17/21 at 17:31; Status DC Hydrochlorothiazide (Hydrodiuril) 25 mg DAILY PO ; Start 01/18/21 at 09:00 Guaifenesin/ Codeine Phosphate (Robitussin Ac) 5 ml PRN Q6HRS PRN PO COUGH; Start 01/17/21 at 17:45 Benzonatate (Tessalon Perle) 100 mg BID PO ; Start 01/17/21 at 21:00 Active Scripts Active Reported Lisinopril-Hctz 20-25 Mg Tab (Lisinopril/Hydrochlorothiazide) 1 Each Tablet 1 Tab PO DAILY Metoprolol Tartrate 25 Mg Tablet 1 Tab PO DAILY Klor-Con 10 (Potassium Chloride) 10 Meq Tablet.er 4 Tab PO DAILY Atorvastatin Calcium 40 Mg Tablet 1 Tab PO DAILY Allergies Allergies: Coded Allergies: No Known Drug Allergies (Unverified , 08/05/16) ROS General: No: Chills, Night Sweats, Fatigue, Malaise, Appetite, Other PSYCHOLOGICAL ROS: No: Anxiety, Behavioral Disorder, Concentration difficultie, Decreased libido, Depression, Disorientation, Hallucinations, Hostility, Irritablity, Memory difficulties, Mood Swings, Obsessive thoughts, Physical abuse, Sexual abuse, Sleep disturbances, Suicidal ideation, Other Eyes: No Blurry vision, No Decreased vision, No Double vision, No Dry eyes, No Excessive tearing, No Eye Pain, No Itchy Eyes, No Loss of vision, No Photophobia, No Scotomata, No Uses contacts, No Uses glasses, No Other HEENT: YES: Heacaches; No: Visual Changes, Hearing change, Nasal congestion, Nasal discharge, Oral lesions, Sinus pain, Sore Throat, Epistaxis, Sneezing, Snoring, Tinnitus, Vertigo, Vocal changes, Other Respiratory: YES: Cough, SOB with excertion; No: Hemoptysis, Orthopnea, Pleuritic Pain, Sputum Changes, Stridor, Tachypnea, Wheezing, Other Cardiovascular: No Palpitations, No Orthopnea, No Paroxysmal Noc. Dyspnea, No Edema, No Lt Headedness, No Other Gastrointestinal: Yes Nausea Musculoskeletal: No Gait Disturbance, No Joint Pain, No Joint Stiffness, No Joint Swelling, No Muscle Pain, No Muscular Weakness, No Pain In:, No Swelling In:, No Other Neurological: No Behavorial Changes, No Bowel/Bladder ControlChng, No Confusion, No Dizziness, No Gait Disturbance, No Headaches, No Impaired Coord/balance, No Memory Loss, No Numbness/Tingling, No Seizures, No Speech Problems, No Tremors, No Visual Changes, No Weakness, No Other Skin: Yes Dry Skin; No Eczema, No Hair Changes, No Lumps, No Mole Changes, No Mottling, No Nail Changes, No Pruritus, No Rash, No Skin Lesion Changes, No Other, No Acne Physical Exam General: Alert, Oriented X3, Cooperative, mild distress HEENT: Atraumatic Lungs: Other (rales, cough) Heart: S1S2, no murmurs Abdomen: Soft Extremities: No clubbing, No edema, Normal pulses Skin: No rashes Neuro: Normal speech, Sensation intact Psych/Mental Status: Mental status NL, Mood NL Vitals Vitals Vital Signs Date Time Temp Pulse Resp B/P (MAP) Pulse Ox O2 Delivery O2 Flow Rate FiO2 01/17/21 15:54 86 23 164/76 (105) 96 Nasal Cannula 2.0 01/17/21 07:18 97.9 97.9 Labs Labs Laboratory Tests Test 01/17/21 07:41 01/17/21 08:05 01/17/21 12:15 Influenza Type A Antigen Negative (NEGATIVE) Influenza Type B Antigen Negative (NEGATIVE) SARS-CoV-2 RNA (SEYMOUR) Negative (Negative) SARS-CoV-2 Antigen (Rapid) Negative (NEGATIVE) White Blood Count 10.1 x10^3/uL (4.0-11.0) Red Blood Count 5.26 x10^6/uL (4.30-5.70) Hemoglobin 15.4 g/dL (13.0-17.5) Hematocrit 43.0 % (39.0-53.0) Mean Corpuscular Volume 82 fL (79-100) Mean Corpuscular Hemoglobin 29 pg (25-35) Mean Corpuscular Hemoglobin Concent 36 g/dL (31-37) Red Cell Distribution Width 15.5 % (11.5-14.5) Platelet Count 160 x10^3/uL (140-400) Neutrophils (%) (Auto) 73 % (31-73) Lymphocytes (%) (Auto) 7 % (24-48) Monocytes (%) (Auto) 19 % (0-9) Eosinophils (%) (Auto) 1 % (0-3) Basophils (%) (Auto) 0 % (0-3) Neutrophils # (Auto) 7.3 x10^3/uL (1.8-7.7) Lymphocytes # (Auto) 0.8 x10^3/uL (1.0-4.8) Monocytes # (Auto) 1.9 x10^3/uL (0.0-1.1) Eosinophils # (Auto) 0.1 x10^3/uL (0.0-0.7) Basophils # (Auto) 0.0 x10^3/uL (0.0-0.2) Segmented Neutrophils % 80 % (35-66) Band Neutrophils % 2 % (0-9) Lymphocytes % 10 % (24-48) Monocytes % 7 % (0-10) Eosinophils % 1 % (0-5) Platelet Estimate Adequate (ADEQUATE) Prothrombin Time 15.1 SEC (11.7-14.0) Prothromb Time International Ratio 1.2 (0.8-1.1) Activated Partial Thromboplast Time 36 SEC (24-38) D-Dimer (Alissa) 0.51 ug/mlFEU (0.00-0.50) Sodium Level 131 mmol/L (136-145) Potassium Level 3.2 mmol/L (3.5-5.1) Chloride Level 93 mmol/L (98-107) Carbon Dioxide Level 28 mmol/L (21-32) Anion Gap 10 (6-14) Blood Urea Nitrogen 14 mg/dL (8-26) Creatinine 0.9 mg/dL (0.7-1.3) Estimated GFR (Cockcroft-Gault) 84.2 BUN/Creatinine Ratio 16 (6-20) Glucose Level 116 mg/dL (70-99) Lactic Acid Level 2.2 mmol/L (0.4-2.0) 0.8 mmol/L (0.4-2.0) Calcium Level 8.3 mg/dL (8.5-10.1) Magnesium Level 2.1 mg/dL (1.8-2.4) Total Bilirubin 1.7 mg/dL (0.2-1.0) Aspartate Amino Transf (AST/SGOT) 14 U/L (15-37) Alanine Aminotransferase (ALT/SGPT) 33 U/L (16-63) Alkaline Phosphatase 103 U/L (46-116) Creatine Kinase 154 U/L (39-308) Creatine Kinase MB (Mass) 1.6 ng/mL (0.0-3.6) Creatine Kinase MB Relative Index 1.0 % (0-4) Troponin I High Sensitivity 37 ng/L (4-75) OR-Cuu-A-Type Natriuretic Peptide 134 pg/mL (0-124) Total Protein 6.8 g/dL (6.4-8.2) Albumin 3.3 g/dL (3.4-5.0) Albumin/Globulin Ratio 0.9 (1.0-1.7) Laboratory Tests Test 01/17/21 07:41 01/17/21 08:05 01/17/21 12:15 Influenza Type A Antigen Negative (NEGATIVE) Influenza Type B Antigen Negative (NEGATIVE) SARS-CoV-2 RNA (SEYMOUR) Negative (Negative) SARS-CoV-2 Antigen (Rapid) Negative (NEGATIVE) White Blood Count 10.1 x10^3/uL (4.0-11.0) Red Blood Count 5.26 x10^6/uL (4.30-5.70) Hemoglobin 15.4 g/dL (13.0-17.5) Hematocrit 43.0 % (39.0-53.0) Mean Corpuscular Volume 82 fL (79-100) Mean Corpuscular Hemoglobin 29 pg (25-35) Mean Corpuscular Hemoglobin Concent 36 g/dL (31-37) Red Cell Distribution Width 15.5 % (11.5-14.5) Platelet Count 160 x10^3/uL (140-400) Neutrophils (%) (Auto) 73 % (31-73) Lymphocytes (%) (Auto) 7 % (24-48) Monocytes (%) (Auto) 19 % (0-9) Eosinophils (%) (Auto) 1 % (0-3) Basophils (%) (Auto) 0 % (0-3) Neutrophils # (Auto) 7.3 x10^3/uL (1.8-7.7) Lymphocytes # (Auto) 0.8 x10^3/uL (1.0-4.8) Monocytes # (Auto) 1.9 x10^3/uL (0.0-1.1) Eosinophils # (Auto) 0.1 x10^3/uL (0.0-0.7) Basophils # (Auto) 0.0 x10^3/uL (0.0-0.2) Segmented Neutrophils % 80 % (35-66) Band Neutrophils % 2 % (0-9) Lymphocytes % 10 % (24-48) Monocytes % 7 % (0-10) Eosinophils % 1 % (0-5) Platelet Estimate Adequate (ADEQUATE) Prothrombin Time 15.1 SEC (11.7-14.0) Prothromb Time International Ratio 1.2 (0.8-1.1) Activated Partial Thromboplast Time 36 SEC (24-38) D-Dimer (Alissa) 0.51 ug/mlFEU (0.00-0.50) Sodium Level 131 mmol/L (136-145) Potassium Level 3.2 mmol/L (3.5-5.1) Chloride Level 93 mmol/L (98-107) Carbon Dioxide Level 28 mmol/L (21-32) Anion Gap 10 (6-14) Blood Urea Nitrogen 14 mg/dL (8-26) Creatinine 0.9 mg/dL (0.7-1.3) Estimated GFR (Cockcroft-Gault) 84.2 BUN/Creatinine Ratio 16 (6-20) Glucose Level 116 mg/dL (70-99) Lactic Acid Level 2.2 mmol/L (0.4-2.0) 0.8 mmol/L (0.4-2.0) Calcium Level 8.3 mg/dL (8.5-10.1) Magnesium Level 2.1 mg/dL (1.8-2.4) Total Bilirubin 1.7 mg/dL (0.2-1.0) Aspartate Amino Transf (AST/SGOT) 14 U/L (15-37) Alanine Aminotransferase (ALT/SGPT) 33 U/L (16-63) Alkaline Phosphatase 103 U/L (46-116) Creatine Kinase 154 U/L (39-308) Creatine Kinase MB (Mass) 1.6 ng/mL (0.0-3.6) Creatine Kinase MB Relative Index 1.0 % (0-4) Troponin I High Sensitivity 37 ng/L (4-75) TG-Pis-M-Type Natriuretic Peptide 134 pg/mL (0-124) Total Protein 6.8 g/dL (6.4-8.2) Albumin 3.3 g/dL (3.4-5.0) Albumin/Globulin Ratio 0.9 (1.0-1.7) VTE Prophylaxis Ordered VTE Prophylaxis Devices: Yes VTE Pharmacological Prophylaxi: Yes Assessment/Plan Assessment/Plan Pneumonia cough obese ,bMI 32 htn hyponatremia, hypokalemia Hx Colon cancer, treated Justifications for Admission Other Justification VICKIE HIGHTOWER MD Jan 17, 2021 18:00
[2021-01-17 20:32] LABS: BILIRUBIN,URINE NEGATIVE (NEG); CLARITY,URINE CLEAR; COLOR,URINE YELLOW; NITRITE,URINE NEGATIVE (NEG); PROTEIN,URINE NEGATIVE (NEG-TRACE); UROBILINOGEN,URINE 0.2 mg/dL (0.2 mg/dL)
[2021-01-17 20:53] LABS: HYALINE CASTS, URINE MODERATE /HPF
[2021-01-17 20:54] LABS: BACTERIA,URINE 0 /HPF (0-FEW); RBC,URINE OCC /HPF (0-2); WBC,URINE 0 /HPF (0-4)
[2021-01-17] MEDS: ATORVASTATIN CALCIUM 40 MG TABLET. PO SCH (21:00)
[2021-01-17] MEDS: BENZONATATE 100 MG CAPSULE. PO SCH (21:00)
[2021-01-18 03:00] VITALS: BP 174/80
[2021-01-18 06:25] LABS: BASO % 0 % (0-3); EOS % 0 % (0-3); HEMATOCRIT 38.6 % (39.0-53.0); HEMOGLOBIN 13.5 g/dL (13.0-17.5); LYMPH # 0.9 x10^3/uL (1.0-4.8); LYMPH % 11 % (24-48); MEAN CORPUSCULAR HEMOGLOBIN 29 pg (25-35); MEAN CORPUSCULAR HGB CONC 35 g/dL (31-37); MEAN CORPUSCULAR VOLUME 82 fL (79-100); MONO % 12 % (0-9); NEUT # 6.7 x10^3/uL (1.8-7.7); NEUT % 78 % (31-73); PLATELET COUNT 156 x10^3/uL (140-400); RED BLOOD COUNT 4.68 x10^6/uL (4.30-5.70); RED CELL DISTRIBUTION WIDTH 15.4 % (11.5-14.5); WHITE BLOOD COUNT 8.6 x10^3/uL (4.0-11.0)
[2021-01-18 06:54] LABS: ALBUMIN 2.9 g/dL (3.4-5.0); ALBUMIN/GLOBULIN RATIO 0.9 (1.0-1.7); CALCIUM 7.7 mg/dL (8.5-10.1); CREATININE 0.7 mg/dL (0.7-1.3); GFR 112.5; POTASSIUM 3.4 mmol/L (3.5-5.1); TOTAL PROTEIN 6.1 g/dL (6.4-8.2)
[2021-01-18 07:00] VITALS: BP 167/92
--- NOTE | 2021-01-18 08:23 | PDOC ---
PULMONARY PROGRESS NOTES DATE: 01/18/21 TIME: 08:23 Vitals Vital Signs Date Time Temp Pulse Resp B/P (MAP) Pulse Ox O2 Delivery O2 Flow Rate FiO2 01/18/21 03:00 97.8 85 18 174/80 (111) 94 Nasal Cannula 2.0 97.8 Lungs: Clear Labs Laboratory Tests Test 01/17/21 07:41 01/17/21 08:05 01/17/21 12:15 01/17/21 20:25 Influenza Type A Antigen Negative (NEGATIVE) Influenza Type B Antigen Negative (NEGATIVE) SARS-CoV-2 RNA (SEYMOUR) Negative (Negative) SARS-CoV-2 Antigen (Rapid) Negative (NEGATIVE) White Blood Count 10.1 x10^3/uL (4.0-11.0) Red Blood Count 5.26 x10^6/uL (4.30-5.70) Hemoglobin 15.4 g/dL (13.0-17.5) Hematocrit 43.0 % (39.0-53.0) Mean Corpuscular Volume 82 fL (79-100) Mean Corpuscular Hemoglobin 29 pg (25-35) Mean Corpuscular Hemoglobin Concent 36 g/dL (31-37) Red Cell Distribution Width 15.5 % (11.5-14.5) Platelet Count 160 x10^3/uL (140-400) Neutrophils (%) (Auto) 73 % (31-73) Lymphocytes (%) (Auto) 7 % (24-48) Monocytes (%) (Auto) 19 % (0-9) Eosinophils (%) (Auto) 1 % (0-3) Basophils (%) (Auto) 0 % (0-3) Neutrophils # (Auto) 7.3 x10^3/uL (1.8-7.7) Lymphocytes # (Auto) 0.8 x10^3/uL (1.0-4.8) Monocytes # (Auto) 1.9 x10^3/uL (0.0-1.1) Eosinophils # (Auto) 0.1 x10^3/uL (0.0-0.7) Basophils # (Auto) 0.0 x10^3/uL (0.0-0.2) Segmented Neutrophils % 80 % (35-66) Band Neutrophils % 2 % (0-9) Lymphocytes % 10 % (24-48) Monocytes % 7 % (0-10) Eosinophils % 1 % (0-5) Platelet Estimate Adequate (ADEQUATE) Prothrombin Time 15.1 SEC (11.7-14.0) Prothromb Time International Ratio 1.2 (0.8-1.1) Activated Partial Thromboplast Time 36 SEC (24-38) D-Dimer (Alissa) 0.51 ug/mlFEU (0.00-0.50) Sodium Level 131 mmol/L (136-145) Potassium Level 3.2 mmol/L (3.5-5.1) Chloride Level 93 mmol/L (98-107) Carbon Dioxide Level 28 mmol/L (21-32) Anion Gap 10 (6-14) Blood Urea Nitrogen 14 mg/dL (8-26) Creatinine 0.9 mg/dL (0.7-1.3) Estimated GFR (Cockcroft-Gault) 84.2 BUN/Creatinine Ratio 16 (6-20) Glucose Level 116 mg/dL (70-99) Lactic Acid Level 2.2 mmol/L (0.4-2.0) 0.8 mmol/L (0.4-2.0) Calcium Level 8.3 mg/dL (8.5-10.1) Magnesium Level 2.1 mg/dL (1.8-2.4) Total Bilirubin 1.7 mg/dL (0.2-1.0) Aspartate Amino Transf (AST/SGOT) 14 U/L (15-37) Alanine Aminotransferase (ALT/SGPT) 33 U/L (16-63) Alkaline Phosphatase 103 U/L (46-116) Creatine Kinase 154 U/L (39-308) Creatine Kinase MB (Mass) 1.6 ng/mL (0.0-3.6) Creatine Kinase MB Relative Index 1.0 % (0-4) Troponin I High Sensitivity 37 ng/L (4-75) [id number]-Type Natriuretic Peptide 134 pg/mL (0-124) Total Protein 6.8 g/dL (6.4-8.2) Albumin 3.3 g/dL (3.4-5.0) Albumin/Globulin Ratio 0.9 (1.0-1.7) Urine Collection Type Unknown Urine Color Yellow Urine Clarity Clear Urine pH 6.0 (<5.0-8.0) Urine Specific [place] 1.015 (1.000-1.030) Urine Protein Negative mg/dL (NEG-TRACE) Urine Glucose (UA) Negative mg/dL (NEG) Urine Ketones (Stick) Trace mg/dL (NEG) Urine Blood Negative (NEG) Urine Nitrite Negative (NEG) Urine Bilirubin Negative (NEG) Urine Urobilinogen Dipstick 0.2 mg/dL (0.2 mg/dL) Urine Leukocyte Esterase Negative (NEG) Urine RBC Occ /HPF (0-2) Urine WBC 0 /HPF (0-4) Urine Bacteria 0 /HPF (0-FEW) Urine Hyaline Casts Moderate /HPF Urine Mucus Mod /LPF Test 01/18/21 05:25 White Blood Count 8.6 x10^3/uL (4.0-11.0) Red Blood Count 4.68 x10^6/uL (4.30-5.70) Hemoglobin 13.5 g/dL (13.0-17.5) Hematocrit 38.6 % (39.0-53.0) Mean Corpuscular Volume 82 fL (79-100) Mean Corpuscular Hemoglobin 29 pg (25-35) Mean Corpuscular Hemoglobin Concent 35 g/dL (31-37) Red Cell Distribution Width 15.4 % (11.5-14.5) Platelet Count 156 x10^3/uL (140-400) Neutrophils (%) (Auto) 78 % (31-73) Lymphocytes (%) (Auto) 11 % (24-48) Monocytes (%) (Auto) 12 % (0-9) Eosinophils (%) (Auto) 0 % (0-3) Basophils (%) (Auto) 0 % (0-3) Neutrophils # (Auto) 6.7 x10^3/uL (1.8-7.7) Lymphocytes # (Auto) 0.9 x10^3/uL (1.0-4.8) Monocytes # (Auto) 1.0 x10^3/uL (0.0-1.1) Eosinophils # (Auto) 0.0 x10^3/uL (0.0-0.7) Basophils # (Auto) 0.0 x10^3/uL (0.0-0.2) Sodium Level 133 mmol/L (136-145) Potassium Level 3.4 mmol/L (3.5-5.1) Chloride Level 97 mmol/L (98-107) Carbon Dioxide Level 27 mmol/L (21-32) Anion Gap 9 (6-14) Blood Urea Nitrogen 16 mg/dL (8-26) Creatinine 0.7 mg/dL (0.7-1.3) Estimated GFR (Cockcroft-Gault) 112.5 BUN/Creatinine Ratio 23 (6-20) Glucose Level 108 mg/dL (70-99) Calcium Level 7.7 mg/dL (8.5-10.1) Total Bilirubin 1.0 mg/dL (0.2-1.0) Aspartate Amino Transf (AST/SGOT) 9 U/L (15-37) Alanine Aminotransferase (ALT/SGPT) 32 U/L (16-63) Alkaline Phosphatase 97 U/L (46-116) Total Protein 6.1 g/dL (6.4-8.2) Albumin 2.9 g/dL (3.4-5.0) Albumin/Globulin Ratio 0.9 (1.0-1.7) Laboratory Tests Test 01/17/21 12:15 01/17/21 20:25 01/18/21 05:25 Lactic Acid Level 0.8 mmol/L (0.4-2.0) Urine Collection Type Unknown Urine Color Yellow Urine Clarity Clear Urine pH 6.0 (<5.0-8.0) Urine Specific [place] 1.015 (1.000-1.030) Urine Protein Negative mg/dL (NEG-TRACE) Urine Glucose (UA) Negative mg/dL (NEG) Urine Ketones (Stick) Trace mg/dL (NEG) Urine Blood Negative (NEG) Urine Nitrite Negative (NEG) Urine Bilirubin Negative (NEG) Urine Urobilinogen Dipstick 0.2 mg/dL (0.2 mg/dL) Urine Leukocyte Esterase Negative (NEG) Urine RBC Occ /HPF (0-2) Urine WBC 0 /HPF (0-4) Urine Bacteria 0 /HPF (0-FEW) Urine Hyaline Casts Moderate /HPF Urine Mucus Mod /LPF White Blood Count 8.6 x10^3/uL (4.0-11.0) Red Blood Count 4.68 x10^6/uL (4.30-5.70) Hemoglobin 13.5 g/dL (13.0-17.5) Hematocrit 38.6 % (39.0-53.0) Mean Corpuscular Volume 82 fL (79-100) Mean Corpuscular Hemoglobin 29 pg (25-35) Mean Corpuscular Hemoglobin Concent 35 g/dL (31-37) Red Cell Distribution Width 15.4 % (11.5-14.5) Platelet Count 156 x10^3/uL (140-400) Neutrophils (%) (Auto) 78 % (31-73) Lymphocytes (%) (Auto) 11 % (24-48) Monocytes (%) (Auto) 12 % (0-9) Eosinophils (%) (Auto) 0 % (0-3) Basophils (%) (Auto) 0 % (0-3) Neutrophils # (Auto) 6.7 x10^3/uL (1.8-7.7) Lymphocytes # (Auto) 0.9 x10^3/uL (1.0-4.8) Monocytes # (Auto) 1.0 x10^3/uL (0.0-1.1) Eosinophils # (Auto) 0.0 x10^3/uL (0.0-0.7) Basophils # (Auto) 0.0 x10^3/uL (0.0-0.2) Sodium Level 133 mmol/L (136-145) Potassium Level 3.4 mmol/L (3.5-5.1) Chloride Level 97 mmol/L (98-107) Carbon Dioxide Level 27 mmol/L (21-32) Anion Gap 9 (6-14) Blood Urea Nitrogen 16 mg/dL (8-26) Creatinine 0.7 mg/dL (0.7-1.3) Estimated GFR (Cockcroft-Gault) 112.5 BUN/Creatinine Ratio 23 (6-20) Glucose Level 108 mg/dL (70-99) Calcium Level 7.7 mg/dL (8.5-10.1) Total Bilirubin 1.0 mg/dL (0.2-1.0) Aspartate Amino Transf (AST/SGOT) 9 U/L (15-37) Alanine Aminotransferase (ALT/SGPT) 32 U/L (16-63) Alkaline Phosphatase 97 U/L (46-116) Total Protein 6.1 g/dL (6.4-8.2) Albumin 2.9 g/dL (3.4-5.0) Albumin/Globulin Ratio 0.9 (1.0-1.7) Medications Active Scripts Medications Dose Route/Sig Max Daily Dose Days Date Category Lisinopril-Hctz 20-25 Mg Tab (Lisinopril/Hydrochlorothiazide) 1 Each Tablet 1 Tab PO DAILY 05/12/15 Reported Metoprolol Tartrate 25 Mg Tablet 1 Tab PO DAILY 05/12/15 Reported Klor-Con 10 (Potassium Chloride) 10 Meq Tablet.er 4 Tab PO DAILY 05/12/15 Reported Atorvastatin Calcium 40 Mg Tablet 1 Tab PO DAILY 05/12/15 Reported Impression . FULL NOTE DICTATED WILL RULE OUT PE PNEUMONIA THANKS SALOME VELASQUEZ MD Jan 18, 2021 08:23
[2021-01-18] MEDS: AZITHROMYCIN 250 MG TABLET. PO SCH (09:05)
[2021-01-18] MEDS: POTASSIUM CHLORIDE 10 MEQ TABLET.ER. PO SCH (09:05)
[2021-01-18] MEDS: BENZONATATE 100 MG CAPSULE. PO SCH ×2 (09:06→21:38)
[2021-01-18] MEDS: hydroCHLOROthiazide 25 MG TABLET PO SCH (09:06)
[2021-01-18] MEDS: LISINOPRIL 20 MG TABLET PO SCH (09:06)
[2021-01-18] MEDS: METOPROLOL SUCC 24HR ER 25 MG TAB.ER.24H. PO SCH (09:07)
[2021-01-18 11:00] VITALS: BP 149/76
--- NOTE | 2021-01-18 11:07 | NUR ---
Checked pt SpO2 on RA after ambulating to restroom- pt currently 96% HR 67. Pt having no SOB or pain at this time. Will continue to monitor.
--- NOTE | 2021-01-18 11:52 | NUR ---
SW following. Discussed with RN, pt from home, 2L (RN attempting to titrate), cardiac diet. Flu and COVID-19 negative. Pulmonology following. RN advised no SW needs at this time, anticipates possible discharge home today. SW will continue to follow.
--- NOTE | 2021-01-18 14:29 | PDOC ---
[employer] PROGRESS NOTE Date of Service DOS: DATE: 01/18/21 TIME: 14:25 Chief Complaint Chief Complaint Hypoxic respiratory failure secondary to suspected CAP, history hypertension electrolyte abnormalities on admission -Patient presented emergency room with dizziness shortness of breath. [place] like he was going to fall when he was walking -Present emergency room concern for pneumonia on imaging work-up -Started on Rocephin azithromycin and steroids -Electrolytes replaced -Pulmonary team consulted. -Covid negative -Patient is currently ambulating around his room without difficulty therapy History of Present Illness History of Present Illness Mr. Hargrove, is a 65-year-old male, admitted her 6 years ago for colon cancer and has been doing well since and has been cancer free. Admit from the ER for weakness, cough and dizziness. He reports he almost passed out when walking he had new marked dizzyness this morning at 0730 hrs, muffled hearing for 2 days. he has felt mildly ill for almost a week, w. productive cough, nasal discharge, mild malaise. His has similar symptoms. has gotten 2 doses of Pfizer 01/18 Patient evaluate examined at bedside. He was up ambulating around his room without difficulty. Said he was feeling pretty good overall. Definitely pn eumonia on imaging. Continue antibiotics. As needed breathing treatments oxygen. Pulmonary consulted. Hopeful for discharge in next day or 2. Vitals/I&O Vitals/I&O: Vital Signs Date Time Temp Pulse Resp B/P (MAP) Pulse Ox O2 Delivery O2 Flow Rate FiO2 01/18/21 11:00 97.7 67 18 149/76 (100) 97 Nasal Cannula 2.0 97.7 I & O 01/17/21 01/17/21 01/18/21 15:00 23:00 07:00 Intake Total 1000 ml 250 ml 0 ml Balance 1000 ml 250 ml 0 ml Physical Exam General: Alert, Oriented X3, Cooperative, mild distress Lungs: Clear Abdomen: Soft Extremities: No clubbing, No edema, Normal pulses Skin: No rashes Labs Labs: Laboratory Tests Test 01/17/21 20:25 01/18/21 05:25 Urine Collection Type Unknown Urine Color Yellow Urine Clarity Clear Urine pH 6.0 (<5.0-8.0) Urine Specific [place] 1.015 (1.000-1.030) Urine Protein Negative mg/dL (NEG-TRACE) Urine Glucose (UA) Negative mg/dL (NEG) Urine Ketones (Stick) Trace mg/dL (NEG) Urine Blood Negative (NEG) Urine Nitrite Negative (NEG) Urine Bilirubin Negative (NEG) Urine Urobilinogen Dipstick 0.2 mg/dL (0.2 mg/dL) Urine Leukocyte Esterase Negative (NEG) Urine RBC Occ /HPF (0-2) Urine WBC 0 /HPF (0-4) Urine Bacteria 0 /HPF (0-FEW) Urine Hyaline Casts Moderate /HPF Urine Mucus Mod /LPF White Blood Count 8.6 x10^3/uL (4.0-11.0) Red Blood Count 4.68 x10^6/uL (4.30-5.70) Hemoglobin 13.5 g/dL (13.0-17.5) Hematocrit 38.6 % (39.0-53.0) Mean Corpuscular Volume 82 fL (79-100) Mean Corpuscular Hemoglobin 29 pg (25-35) Mean Corpuscular Hemoglobin Concent 35 g/dL (31-37) Red Cell Distribution Width 15.4 % (11.5-14.5) Platelet Count 156 x10^3/uL (140-400) Neutrophils (%) (Auto) 78 % (31-73) Lymphocytes (%) (Auto) 11 % (24-48) Monocytes (%) (Auto) 12 % (0-9) Eosinophils (%) (Auto) 0 % (0-3) Basophils (%) (Auto) 0 % (0-3) Neutrophils # (Auto) 6.7 x10^3/uL (1.8-7.7) Lymphocytes # (Auto) 0.9 x10^3/uL (1.0-4.8) Monocytes # (Auto) 1.0 x10^3/uL (0.0-1.1) Eosinophils # (Auto) 0.0 x10^3/uL (0.0-0.7) Basophils # (Auto) 0.0 x10^3/uL (0.0-0.2) Sodium Level 133 mmol/L (136-145) Potassium Level 3.4 mmol/L (3.5-5.1) Chloride Level 97 mmol/L (98-107) Carbon Dioxide Level 27 mmol/L (21-32) Anion Gap 9 (6-14) Blood Urea Nitrogen 16 mg/dL (8-26) Creatinine 0.7 mg/dL (0.7-1.3) Estimated GFR (Cockcroft-Gault) 112.5 BUN/Creatinine Ratio 23 (6-20) Glucose Level 108 mg/dL (70-99) Calcium Level 7.7 mg/dL (8.5-10.1) Total Bilirubin 1.0 mg/dL (0.2-1.0) Aspartate Amino Transf (AST/SGOT) 9 U/L (15-37) Alanine Aminotransferase (ALT/SGPT) 32 U/L (16-63) Alkaline Phosphatase 97 U/L (46-116) Total Protein 6.1 g/dL (6.4-8.2) Albumin 2.9 g/dL (3.4-5.0) Albumin/Globulin Ratio 0.9 (1.0-1.7) Assessment and Plan Assessmemt and Plan Problems Medical Problems: (1) Hypokalemia Status: Acute (2) Lactic acidosis Status: Acute (3) Respiratory failure Status: Acute (4) Suspected 2019 novel coronavirus infection Status: Acute Comment Review of Relevant I have reviewed the following items mario (where applicable) has been applied. Medications: Current Medications Medications (Trade) Dose Ordered Sig/Duke Route PRN Reason Start Time Stop Time Status Last Admin Dose Admin Sodium Chloride 1,000 ml @ 100 mls/hr Q10H IV 01/17/21 16:15 01/18/21 02:19 DC 01/17/21 16:46 Metoprolol Succinate (Toprol Xl) 25 mg DAILY PO 01/18/21 09:00 01/18/21 09:07 Potassium Chloride (Klor-Con) 40 meq DAILY PO 01/18/21 09:00 01/18/21 09:05 Lisinopril (Prinivil) 20 mg DAILY PO 01/18/21 09:00 01/18/21 09:06 Potassium Chloride (Klor-Con) 40 meq 1X ONCE PO 01/17/21 17:30 01/17/21 17:31 DC 01/17/21 18:12 Hydrochlorothiazide (Hydrodiuril) 25 mg DAILY PO 01/18/21 09:00 01/18/21 09:06 Benzonatate (Tessalon Perle) 100 mg BID PO 01/17/21 21:00 01/18/21 09:06 Azithromycin (Zithromax) 250 mg DAILY PO 01/18/21 09:00 01/18/21 09:05 Justifications for Admission Other Justification JERMAIN FERREIRA MD Jan 18, 2021 14:29
[2021-01-18 15:00] VITALS: BP 152/74
--- NOTE | 2021-01-18 17:35 | CONS ---
DATE OF CONSULTATION: 01/18/2021 ATTENDING PHYSICIAN: Ambika Samuel MD. REASON FOR CONSULTATION: The patient is seen in pulmonary consultation at the request of Dr. Samuel for abnormal x-ray. HISTORY OF PRESENT ILLNESS: The patient is a 65-year-old that presented after having a period of episode of feeling dizzy, he was unstable on his feet. The patient apparently woke up and not feeling well, went to work, got out of his car, was working towards the entrance of his work and started feeling dizzy. He almost fell down. He sat down in his car and was chilling. He presented to the Emergency Room, was evaluated and underwent a chest x-ray, which revealed a left lower lobe infiltrate. He was admitted and being treated for pneumonia. I was asked to see him in consultation. The patient normally does not smoke. He does not have underlying COPD. He is up to date on his COVID-19 vaccination. He does not wear oxygen at home. He has never smoked. PAST MEDICAL HISTORY: Colon cancer status post resection with subsequent chemo. There is a history of hypertension and hyperlipidemia. No history of DVT or pulmonary embolism. PAST SURGICAL HISTORY: Status post colectomy, tonsillectomy. FAMILY HISTORY: Positive for cancer. SOCIAL HISTORY: He has never smoked. 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 REVIEW OF SYSTEMS: As indicated above, otherwise a 10-point system was reviewed and negative. CURRENT MEDICATIONS: List was reviewed. He is currently receiving Rocephin and Zithromax. ALLERGIES: No known drug allergies. PHYSICAL EXAMINATION: VITAL SIGNS: Stable. O2 saturation since admission has been greater than 92% on 2 liters. HEENT: Eyes: The sclerae were nonicteric. NECK: Jugular venous distention was not elevated. No lymphadenopathy. CHEST: Full expansion. LUNGS: Poor flow with no wheezes. CARDIOVASCULAR: Regular rate and rhythm with S1, S2, no S3. ABDOMEN: Soft. EXTREMITIES: No clubbing, cyanosis or edema. NEUROLOGIC: The patient was awake, alert, following commands. A detailed neuro exam was not performed. LABORATORY DATA: Reviewed. White count was normal, hemoglobin and hematocrit were noted. D-dimer was elevated. Serology for influenza and SARS-CoV-2 was negative. Electrolytes were deranged. Potassium was low. Sodium was low. BNP was elevated. IMPRESSION: 1. Abnormal x-ray. 2. Possible pneumonia with gram-negative/gram-positive. 3. Dizziness, suspect postural hypotension, autonomic instability. 4. Colon cancer, status post resection and chemotherapy. 5. Obesity. 6. Hyponatremia. 7. Hypokalemia. PLAN: 1. Recommend continue antibiotics. 2. We will proceed with a CT angiogram to complete workup. 3. Continue current support. SHANI DR: Adrian TID: [id number]
[2021-01-18] MEDS ORDERED: cefTRIAXone IV Push 1 GM VIAL. IVP SCH (18:00)
[2021-01-18 19:00] VITALS: BP 161/72
[2021-01-18] MEDS: ATORVASTATIN CALCIUM 40 MG TABLET. PO SCH (21:38)
[2021-01-18] MEDS: LACTOBACILLUS RHAMNOSUS GG 1 CAPSULE. PO SCH (21:38)
[2021-01-18 23:03] VITALS: BP 165/77
[2021-01-19 03:14] VITALS: BP 144/75
[2021-01-19 07:00] VITALS: BP 177/81
[2021-01-19] MEDS: AZITHROMYCIN 250 MG TABLET. PO SCH (08:16)
[2021-01-19] MEDS: LISINOPRIL 20 MG TABLET PO SCH (08:16)
[2021-01-19] MEDS: BENZONATATE 100 MG CAPSULE. PO SCH (08:16)
[2021-01-19] MEDS: METOPROLOL SUCC 24HR ER 25 MG TAB.ER.24H. PO SCH (08:17)
[2021-01-19] MEDS: LACTOBACILLUS RHAMNOSUS GG 1 CAPSULE. PO SCH (08:17)
[2021-01-19] MEDS: hydroCHLOROthiazide 25 MG TABLET PO SCH (08:17)
[2021-01-19] MEDS: POTASSIUM CHLORIDE 10 MEQ TABLET.ER. PO SCH (08:17)
--- NOTE | 2021-01-19 08:54 | PDOC ---
PULMONARY PROGRESS NOTES DATE: 01/19/21 TIME: 08:54 Vitals Vital Signs Date Time Temp Pulse Resp B/P (MAP) Pulse Ox O2 Delivery O2 Flow Rate FiO2 01/19/21 08:17 70 177/81 01/19/21 07:00 97.7 20 92 Room Air 97.7 01/18/21 15:00 2.0 Lungs: Clear Labs Laboratory Tests Test 01/17/21 12:15 01/17/21 20:25 01/18/21 05:25 Lactic Acid Level 0.8 mmol/L (0.4-2.0) Urine Collection Type Unknown Urine Color Yellow Urine Clarity Clear Urine pH 6.0 (<5.0-8.0) Urine Specific [place] 1.015 (1.000-1.030) Urine Protein Negative mg/dL (NEG-TRACE) Urine Glucose (UA) Negative mg/dL (NEG) Urine Ketones (Stick) Trace mg/dL (NEG) Urine Blood Negative (NEG) Urine Nitrite Negative (NEG) Urine Bilirubin Negative (NEG) Urine Urobilinogen Dipstick 0.2 mg/dL (0.2 mg/dL) Urine Leukocyte Esterase Negative (NEG) Urine RBC Occ /HPF (0-2) Urine WBC 0 /HPF (0-4) Urine Bacteria 0 /HPF (0-FEW) Urine Hyaline Casts Moderate /HPF Urine Mucus Mod /LPF White Blood Count 8.6 x10^3/uL (4.0-11.0) Red Blood Count 4.68 x10^6/uL (4.30-5.70) Hemoglobin 13.5 g/dL (13.0-17.5) Hematocrit 38.6 % (39.0-53.0) Mean Corpuscular Volume 82 fL (79-100) Mean Corpuscular Hemoglobin 29 pg (25-35) Mean Corpuscular Hemoglobin Concent 35 g/dL (31-37) Red Cell Distribution Width 15.4 % (11.5-14.5) Platelet Count 156 x10^3/uL (140-400) Neutrophils (%) (Auto) 78 % (31-73) Lymphocytes (%) (Auto) 11 % (24-48) Monocytes (%) (Auto) 12 % (0-9) Eosinophils (%) (Auto) 0 % (0-3) Basophils (%) (Auto) 0 % (0-3) Neutrophils # (Auto) 6.7 x10^3/uL (1.8-7.7) Lymphocytes # (Auto) 0.9 x10^3/uL (1.0-4.8) Monocytes # (Auto) 1.0 x10^3/uL (0.0-1.1) Eosinophils # (Auto) 0.0 x10^3/uL (0.0-0.7) Basophils # (Auto) 0.0 x10^3/uL (0.0-0.2) Sodium Level 133 mmol/L (136-145) Potassium Level 3.4 mmol/L (3.5-5.1) Chloride Level 97 mmol/L (98-107) Carbon Dioxide Level 27 mmol/L (21-32) Anion Gap 9 (6-14) Blood Urea Nitrogen 16 mg/dL (8-26) Creatinine 0.7 mg/dL (0.7-1.3) Estimated GFR (Cockcroft-Gault) 112.5 BUN/Creatinine Ratio 23 (6-20) Glucose Level 108 mg/dL (70-99) Calcium Level 7.7 mg/dL (8.5-10.1) Total Bilirubin 1.0 mg/dL (0.2-1.0) Aspartate Amino Transf (AST/SGOT) 9 U/L (15-37) Alanine Aminotransferase (ALT/SGPT) 32 U/L (16-63) Alkaline Phosphatase 97 U/L (46-116) Total Protein 6.1 g/dL (6.4-8.2) Albumin 2.9 g/dL (3.4-5.0) Albumin/Globulin Ratio 0.9 (1.0-1.7) Medications Active Scripts Medications Dose Route/Sig Max Daily Dose Days Date Category Lisinopril-Hctz 20-25 Mg Tab (Lisinopril/Hydrochlorothiazide) 1 Each Tablet 1 Tab PO DAILY 05/12/15 Reported Metoprolol Tartrate 25 Mg Tablet 1 Tab PO DAILY 05/12/15 Reported Klor-Con 10 (Potassium Chloride) 10 Meq Tablet.er 4 Tab PO DAILY 05/12/15 Reported Atorvastatin Calcium 40 Mg Tablet 1 Tab PO DAILY 05/12/15 Reported Impression . FULL NOTE DICTATED WILL RULE OUT PE PNEUMONIA THANKS SALOME VELASQUEZ MD Jan 19, 2021 08:54
[2021-01-19 11:00] VITALS: BP 172/75
[2021-01-19] MEDS ORDERED: HYDR-2145 PO (11:37)
[2021-01-19] MEDS ORDERED: BENZ-8 PO (11:37)
--- NOTE | 2021-01-19 11:47 | PDOC ---
[employer] PROGRESS NOTE Date of Service DOS: DATE: 01/19/21 TIME: 11:42 Chief Complaint Chief Complaint Hypoxic respiratory failure secondary to suspected CAP, history hypertension electrolyte abnormalities on admission -Patient presented emergency room with dizziness shortness of breath. [place] like he was going to fall when he was walking -Present emergency room concern for pneumonia on imaging work-up -Started on Rocephin azithromycin and steroids -Electrolytes replaced -Pulmonary team consulted. -Covid negative -Patient is currently ambulating around his room without difficulty therapy History of Present Illness History of Present Illness Mr. Hargrove, is a 65-year-old male, admitted her 6 years ago for colon cancer and has been doing well since and has been cancer free. Admit from the ER for weakness, cough and dizziness. He reports he almost passed out when walking he had new marked dizzyness this morning at 0730 hrs, muffled hearing for 2 days. he has felt mildly ill for almost a week, w. productive cough, nasal discharge, mild malaise. His has similar symptoms. has gotten 2 doses of Pfizer 01/19/2021 Patient seen and evaluated Patient appears in NAD, seems to be at baseline, ready to discharge today Chart reviewed Discussed with RN 01/18 Patient evaluate examined at bedside. He was up ambulating around his room without difficulty. Said he was feeling pretty good overall. Definitely pneumonia on imaging. Continue antibiotics. As needed breathing treatments oxygen. Pulmonary consulted. Hopeful for discharge in next day or 2. Vitals/I&O Vitals/I&O: Vital Signs Date Time Temp Pulse Resp B/P (MAP) Pulse Ox O2 Delivery O2 Flow Rate FiO2 01/19/21 11:00 97.3 65 20 172/75 (107) 95 Room Air 97.3 01/18/21 15:00 2.0 I & O 01/18/21 01/18/21 01/19/21 15:00 23:00 07:00 Intake Total 180 ml Balance 180 ml Physical Exam General: Alert, Oriented X3, Cooperative, mild distress Lungs: Clear Abdomen: Soft Extremities: No clubbing, No edema, Normal pulses Skin: No rashes Assessment and Plan Assessmemt and Plan Problems Medical Problems: (1) Hypokalemia Status: Acute (2) Lactic acidosis Status: Acute (3) Respiratory failure Status: Acute (4) Suspected 2019 novel coronavirus infection Status: Acute Hypoxic respiratory failure secondary to suspected CAP hypertension electrolyte abnormalities on admission Plan: Script for azithromycin Script for augmentin Discharge home today Comment Review of Relevant I have reviewed the following items mario (where applicable) has been applied. Medications: Current Medications Medications (Trade) Dose Ordered Sig/Duke Route PRN Reason Start Time Stop Time Status Last Admin Dose Admin Ceftriaxone Sodium (Rocephin) 1 gm Q24H IVP 01/18/21 18:00 01/18/21 17:37 Lactobacillus Rhamnosus (Culturelle) 1 cap BID PO 01/18/21 21:00 01/19/21 08:17 Justifications for Admission Other Justification DEREJE EDUARDO III DO Jan 19, 2021 11:47
--- NOTE | 2021-01-19 11:55 | NUR ---
Discharge Note: [facility] Discharge instructions and discharge home medications reviewed with Patient and a copy given. All questions have been answered and understanding verbalized. The following instructions and handouts were given: f/u with PCP within two weeks. Discontinued lines and drains: Peripheral IV intact. Patient discharged to Home or Self Care with Self via Ambulated.
--- NOTE | 2021-01-19 13:26 | NUR ---
SW following. Discussed with RN, discharge order for home with self care. RN advised no SW needs.
--- NOTE | 2021-01-19 14:06 | DS ---
DATE OF DISCHARGE: 01/19/2021 ADMITTING DIAGNOSIS: Pneumonia. DISCHARGE DIAGNOSIS: Resolving pneumonia. HOSPITAL COURSE: The patient is a pleasant middle-aged male who presented with pneumonia. We gave him IV antibiotics, breathing treatments, oxygen and consulted Pulmonary Medicine. Over the past few days, he has returned to his baseline. Today, I saw and examined him. We plan to discharge home on p.o. Augmentin and doxycycline. DISPOSITION: Home. ACTIVITY: As tolerated. DIET: Low sodium. DISCHARGE MEDICATIONS: Please see the MRAD. Doxycycline 100 p.o. b.i.d. for a week, Augmentin 875 b.i.d. for a week, benzonatate 100 b.i.d., hydrochlorothiazide 25 a day, atorvastatin 40 a day, lisinopril/hydrochlorothiazide 20/25 one a day, metoprolol 25 a day and potassium chloride 10 a day. TOTAL TIME: [address]: Vianney TID: [id number]
== END 2021-01-19 11:55 | disposition home or self-care (01) | DRG 177 ==
LOC: ER 07:02 → ED HOLD 12:00 → 5 SOUTH 14:13
PROVIDERS: ADMIT Internal Medicine; ATTEND Internal Medicine
DX: J15.6 Pneumonia due to other Gram-negative bacteria (principal); J96.01 Acute respiratory failure with hypoxia; E87.1 Hypo-osmolality and hyponatremia; E87.2 Acidosis; E66.9 Obesity, unspecified; E78.00 Pure hypercholesterolemia, unspecified; E78.5 Hyperlipidemia, unspecified; E87.6 Hypokalemia; I10 Essential (primary) hypertension; Z20.822 Contact with and (suspected) exposure to COVID-19; Z68.32 Body mass index [BMI] 32.0-32.9, adult; Z85.038 Personal history of other malignant neoplasm of large intestine; Z90.49 Acquired absence of other specified parts of digestive tract
CPT/HCPCS: 36415; 71045; 80053; 81001; 82553; 83605; 83735; 83880; 84484; 85007; 85025; 85379; 85610; 85730; 87040; 87426; 87804; 93005; 96361; 96365; 96375; J0456; J0696; J1100; J7030; U0003; U0005; 99291-25; G0378